=== PATIENT | male | born 1935 | race Caucasian/White ===

== ENCOUNTER 2018-10-09 14:18 | Emergency (ER) | payer BC ==
[2018-10-09 14:24] VITALS: BP 146/62; PULSE 60; TEMP 97.6; BMI 25.1
--- NOTE | 2018-10-09 14:24 | PDOC ---
Rapid Medical Evaluation Time Seen by Provider: 10/09/18 14:20 Medical Evaluation: Allergies Allergy/AdvReac Type Severity Reaction Status Date / Time No Known Allergies Allergy Verified 02/28/16 08:23 10/09/18 14:22 I have performed a brief exam on this patient. CC: sent by PMD for evaluation of cervical fracture PE: No cervical spinal bony tenderness Orders: c-collar The patient will proceed to the ER for further evaluation. Discharge Disposition - Diagnosis Cervical spine fracture - Referrals - Patient Instructions - Post Discharge Activity
--- NOTE | 2018-10-09 15:24 | PDOC ---
History of Present Illness - General Chief Complaint: Injury Stated Complaint: INJURY C-2 FRACTURE Time Seen by Provider: 10/09/18 14:20 - History of Present Illness Initial Comments: 10/09/18 16:42 83yo M hx HTN, HLD, DM, and pacemaker presents to ED sent by PCP Dr Powers for neurosurgery evaluation for type II odontoid nondisplaced cervical fracture s/p mechanical fall 2 days ago. Pt tripped at home 2 days ago and went "flying" straight forward head first into wall, going through drywall. Pt had neck and upper back pain and made a PCP appt for today. PCP sent pt here for CTH/c-spine and XR t-spine. Results showed type II odontoid fx nondisplaced and pt was sent her for c-collar and neurosurgery evaluation. Pt is in c-collar. Pt took 4 aleve this AM and denies any complaints now. Pt states it was hard to lift chin/ head before so he likes the collar. Pt states he had neck and upper back pain, but not now. Denies dizziness, chest pain, palpitations, seizure-like activity or any sx preceding fall. Denies ESPINOZA, dizziness, vision changes, numbness/ tingling, weakness, CP, SOB, abdominal pain, lower back pain, any other injuries. Past History - Past Medical History Allergies/Adverse Reactions: Allergies Allergy/AdvReac Type Severity Reaction Status Date / Time No Known Allergies Allergy Verified 10/09/18 14:24 Home Medications: Ambulatory Orders Glimepiride 4 mg PO BID 09/25/14 Metoprolol Succinate [Toprol XL -] 50 mg PO DAILY 09/25/14 Quinapril HCl [Accupril -] 10 mg PO DAILY 09/25/14 Saxagliptin HCl [Onglyza] 5 mg PO DAILY 09/25/14 Simvastatin [Zocor -] 20 mg PO DAILY 09/25/14 metFORMIN HCL [Glucophage -] 500 mg PO BID 09/25/14 Aspirin [ASA -] 325 mg PO DAILY 02/06/16 Ranitidine HCl [Zantac] 150 mg PO BID 02/06/16 Anemia: No Asthma: No Cancer: No Cardiac Disorders: Yes (2001 [facility]) CVA: No COPD: No CHF: No Dementia: No Diabetes: Yes (26 YEARS) GI Disorders: Yes (TAKES ZANTAC FOR UPSET STOMACH SECONDARY TO MEDS) Disorders: No HTN: No (DENIES) Hypercholesterolemia: Yes Liver Disease: No Seizures: No Thyroid Disease: No - Surgical History Abdominal Surgery: No Appendectomy: Yes Cardiac Surgery: Yes (CABG X 5 2001) Cholecystectomy: Yes Lung Surgery: No Neurologic Surgery: No Orthopedic Surgery: No - Suicide/Smoking/Psychosocial Hx Smoking History: Never smoked Have you smoked in the past 12 months: No If you are a former smoker, when did you quit?: RARE CIGAR OR PIPE OVER 20 YEARS AGO Information on smoking cessation initiated: No Hx Alcohol Use: No Drug/Substance Use Hx: No Substance Use Type: None Hx Substance Use Treatment: No Review of Systems - Review of Systems Comments:: 10/09/18 15:42 Constitutional: Negative for chills, fever, fatigue. HENT: Negative for sore throat, rhinorrhea, congestion. Eyes: Negative for visual disturbance. Respiratory: Negative for shortness of breath, cough, and wheezing. Cardiovascular: Negative for chest pain, palpitations, and leg swelling. Gastrointestinal: Negative for abdominal pain, nausea, vomiting, blood in stool , constipation, diarrhea. Genitourinary: Negative for dysuria, hematuria, flank pain. Musculoskeletal: Positive for upper back pain, and neck pain. Skin: Negative for rash. Neurological: Negative for light-headedness, dizziness, syncope, weakness, numbness and headaches. Psychiatric/Behavioral: Negative for behavioral problems and confusion. *Physical Exam - Vital Signs Last Vital Signs Temp Pulse Resp BP Pulse Ox 97.6 F 60 17 146/62 97 10/09/18 14:21 10/09/18 14:21 10/09/18 14:21 10/09/18 14:21 10/09/18 14:21 - Physical Exam Comments: 10/09/18 15:43 Gen: Alert, NAD, comfortable-appearing HEENT: In c-collar. PERRL, EOMI, MMM, NCAT. No conjunctival pallor. Sclera are non-icteric. CV: Regular rate and rhythm. No murmurs, rubs, or gallops. PULM: No resp distress. CTAB, no wheezes, rales, or rhonchi. ABD: soft, NT/ND, no rebound tenderness or guarding. BACK: +TTP of c/t-spine. No TTP of l-spine. No step-offs or deformities. MSK: No bony deformities. 2+ pulses in all extremities. NEURO: AAOx3. PERRL. CN 2-12 intact. Sensation to light touch intact in all extremities. 5/5 strength in all extremities. No pronator drift. No dysmetria. No dysdiadochokinesia. No abnormal nystagmus. No skew deviation. Normal gait. EXTREMITIES: No cyanosis. No clubbing. No edema. No calf tenderness. PSYCH: Normal mood and thought pattern. SKIN: Warm and dry. Normal capillary refill. No rashes. No jaundice. Medical Decision Making - Medical Decision Making 10/09/18 18:51 83yo M hx HTN, HLD, DM, and pacemaker presents to ED sent by PCP Dr Powers for neurosurgery evaluation for type II odontoid nondisplaced cervical fracture s/p mechanical fall 2 days ago. Pt tripped at home 2 days ago and went "flying" straight forward head first into wall, going through [facility]. Pt had neck and upper back pain and made a PCP appt for today. PCP sent pt here for CTH/c-spine and XR t-spine. Results showed type II odontoid fx nondisplaced and pt was sent her for c-collar and neurosurgery evaluation. Pt is in c-collar. Pt took 4 aleve this AM and denies any complaints now. Pt states it was hard to lift chin/ head before so he likes the collar. Pt states he had neck and upper back pain, but not now. Denies dizziness, chest pain, palpitations, seizure-like activity or any sx preceding fall. Denies ESPINOZA, dizziness, vision changes, numbness/ tingling, weakness, CP, SOB, abdominal pain, lower back pain, any other injuries. Hemodynamically stable, neurologically intact, afebrile, type II nondisplaced odontoid fx on CT c-spine, no acute abnormalities on CTH or XR t-spine. No other injuries or complaints. -Consult Neurosurgery -Dispo: pending neurosurgery recs Called Dr Powers - told to call Dr Pineda and follow recs. Called Dr Pineda - requested MR cervical, but pt has pacemaker. Dr Pineda evaluated images and decided to follow pt outpt. Recommended to dc pt in c- collar and f/u with him outpt. Changed c-collar to [place]. Pt ambulates well. No back TTP. No current complaints. Neurologically intact. Pt has pain medication prescription from PCP. Return precautions given. Pt understands all dc instructions and all questions were answered. *DC/Admit/Observation/Transfer Diagnosis at time of Disposition: Cervical spine fracture - Discharge Dispostion Disposition: HOME Condition at time of disposition: Stable Decision to Admit order: No - Referrals Referrals: Celine Powers MD [Primary Care Provider] - Joe Pineda MD, FAANS [Staff Physician] - - Patient Instructions Printed Discharge Instructions: DI for Cervical Neck Fracture Additional Instructions: You have been seen in the Emergency Department for your neck and back pain. Your CT scan of your neck shows a fracture. We have spoken with Neurosurgery who has recommended that you stay in your cervical collar and follow-up in their office this week. We have given you a referral - give Dr Pineda's office a call today to schedule an appointment for this week. It is important to keep your neck still to prevent further movement or trauma for as long as your doctor recommends - keep the collar on until you see Dr Pineda and he clears you. Also follow-up with your primary care doctor within 1 week. If you experience pain, you can take Tylenol or Ibuprofen as directed on the medication bottle, but do not exceed 3g of Ibuprofen or 4g of Tylenol a day. Return to the ED immediately if you experience worsening pain, numbness or tingling, weakness, headache, or any other new or worsening symptom. - Post Discharge Activity
--- NOTE | 2018-10-09 18:05 | PDOC ---
Documentation entered by Chichi Walters SCRIBE, acting as scribe for Zamzam Verduzco MD. Zamzam Verduzco MD: This documentation has been prepared by the Selena jean baptiste Brenda, SCRIBE, under my direction and personally reviewed by me in its entirety. I confirm that the documentation accurately reflects all work, treatment, procedures, and medical decision making performed by me. Attending Attestation - Resident Resident Name: Birgit Felix - ED Attending Attestation I have performed the following: I have examined & evaluated the patient, The case was reviewed & discussed with the resident, I agree w/resident's findings & plan, Exceptions are as noted - HPI HPI: 10/09/18 16:31 The patient is a 83 yo M h/o htn NIIDM cad stents, pacemaker of who presents to the emergency department from PCP for admission for an injury resulting in a C2 Fracture. pt states he fall 2 days ago, fell head first into a wall, head went through the dry wall. had tripped over a piece of carpet. denies headache. but has been complaining of neck and back pain, all upper. denies new weaknes or numbness. no n/v no loc at time. has been walking for 2 days. today saw his primary who ordered a ct head and c spine. noted to have a C2 fx. The patient denies chest pain, shortness of breath, headache and dizziness. Denies fever, chills, and any GI symptoms. Denies any urinary symptoms. Allergies: NKA Past surgical history: CABG X 5 2001, Appendectomy, Cholecystectomy Social history: No reported PCP: Celine Powers 10/09/18 18:00 - Physicial Exam PE: 10/09/18 18:02 awake alert lungs clear collar on. heart faint systolic murmur, no rub no gallop. abd soft nt nd ext wwp. no edema. no rash. nuero alert oriented x 3. 5/ 5 all four ext. - Medical Decision Making 10/09/18 18:03 83 yo male h/o cad, htn niddm pacemaker sp head / neck injury. cervical spine fx c2 consulted dr chavez. pt unable to get MRI due to pacer. scott reviewed scan. will fu outpt with [facility] collar. dc home.
== END 2018-10-09 18:56 | disposition home or self-care (01) ==
LOC: JER 14:18
DX: S12.9XXA Fracture of neck, unspecified, initial encounter (principal); W22.01XA Walked into wall, initial encounter; Y93.89 Activity, other specified; Y92.009 Unspecified place in unspecified non-institutional (private) residence as the place of occurrence of the external cause; I10 Essential (primary) hypertension; E78.5 Hyperlipidemia, unspecified; E11.9 Type 2 diabetes mellitus without complications; Z95.0 Presence of cardiac pacemaker
CPT/HCPCS: 99281-25